=== PATIENT | female | born 1945 | race Two or more races ===

== ENCOUNTER 2023-08-23 17:05 | Emergency (ER) | payer OTHER ==
[~2023-08-23] VITALS: Ht 152.4 cm; Wt 54.4 kg
[2023-08-23] MEDS ORDERED: LOSARTAN-HCTZ1 EAC1 PO (17:44)
[2023-08-23] MEDS ORDERED: LEVO-T75 MCG (17:45)
[2023-08-23 21:20] LABS: HEMATOCRIT 38.8 % (36.0-45.00); MEAN CELL VOLUME 90.2 fL (80.00-100.00); MEAN CORPUSCULAR HEMOGLOBIN 32.4 pg (27.00-32.0); MEAN CORPUSCULAR HGB CONC 35.9 g/dl (32.0-36.0); RED CELL DISTRIBUTION WIDTH 14.1 % (11.5-14.5)
[2023-08-23 21:22] LABS: PLATELET COUNT 117 K/uL (150-450)
== END 2023-08-23 22:58 | disposition home or self-care (01) ==
LOC: ER 17:05
PROVIDERS: Emergency Medicine
DX: B34.9 Viral infection, unspecified (principal); R53.81 Other malaise; Z20.822 Contact with and (suspected) exposure to COVID-19; I10 Essential (primary) hypertension; E03.8 Other specified hypothyroidism